=== PATIENT | male | born 1950 | race Caucasian/White ===

== ENCOUNTER → 2018-05-28 09:12 | Outpatient (CLI) | payer MEDICARE, MEDICAID, SELFPAY ==
[2018-05-28 10:33] LABS: Absolute Lymphocyte Count 1.56 X10^3/ul (0.83-4.51); Absolute Neutrophil Count 3.6 X10^3/uL (2.0-7.7); Basophil# 0.03 X10^3/uL; Basophil% 0.5 % (0-1); Eosinophil# 0.21 X10^3/uL; Eosinophils% 3.6 % (0-5); Hematocrit 46.7 % (40-54); Hemoglobin 15.6 g/dl (13.0-16.5); Lymphocyte # 1.56 X10^3/ul (4.0); Lymphocyte % 26.9 % (19-41); Mean Corp Hgb Conc 33.4 g/gl (32-36); Mean Corpuscular Hgb 28.9 pg (27.0-32.0); Mean Corpuscular Volume 86.5 fL (80-94); Mean Platelet Vol. 9.5 fl (6.2-12.0); Monocyte# 0.41 X10^3/uL; Monocyte% 7.1 % (0-10); Neutrophil # 3.59 X10^3/uL (2.7-7.7); Neutrophil % 61.9 % (47-70); Platelet Count 211 K/mm3 (150-450); RBC Distribution Width CV 13.9 % (11.6-14.6); RBC Distribution Width SD 44.1 fl (35.1-43.9); White Blood Count 5.8 K/mm3 (4.4-11.0)
[2018-05-28 10:40] LABS: POSITIVE COUNT NO; POSITIVE DIFFERENTIAL NO; POSITIVE MORPHOLOGY NO
[2018-05-28 11:38] LABS: ALB/GLOB Ratio 1.1 RATIO (0.9-2.4); AST(SGOT) 12 U/L (15-37); Alanine Aminotransfer ALT/SGPT 25 U/L (16-61); Albumin, Serum 3.8 g/dL (3.2-5.0); Alkaline Phosphatase 73 U/L (45-117); Anion Gap 6 (5-15); BUN 15 mg/dL (7-18); BUN/Creat Ratio 15.6 RATIO (10-20); Calcium,Total 8.6 mg/dL (8.5-10.1); Chloride 106 mmol/L (98-107); Cholesterol 180 mg/dL (200); Creatinine, Serum 0.96 mg/dL (0.70-1.30); EST Glomerular Filtration Rate 83 mL/min (>60); Est Glom Filt Rate - Afr Amer 100 mL/min (>60); Globulin 3.4 g/dL (2.2-4.2); Glucose 90 mg/dL (74-106); High Density Lipoprotein 32 mg/dL; Potassium 3.9 mmol/L (3.5-5.1); Protein, Total 7.2 g/dL (6.4-8.2); Sodium Level 142 mmol/L (136-145); Triglycerides 140 mg/dL; Very Low Density Lipoprotein 28 mg/dL (5-40)
== END ==
PROVIDERS: Family Provider Family Medicine; PCP Family Medicine; Visit Provider Family Medicine
DX: E78.5 Hyperlipidemia, unspecified (principal); R03.0 Elevated blood-pressure reading, without diagnosis of hypertension
CPT/HCPCS: 36415; 80053; 80061; 85025

== ENCOUNTER → 2018-09-12 09:22 | Outpatient (CLI) | payer MEDICARE, MEDICAID, SELFPAY ==
--- NOTE | 2018-09-12 09:26 | RAD_ITS ---
STUDY: X-RAY - LUMBAR SPINE REASON FOR EXAM: Male, 68 years old. CHRONIC LBP, NKI TECHNIQUE: 5 view(s) of the lumbar spine were obtained. COMPARISON: January 15, 2017 FINDINGS: Normal lumbar lordosis. There is stable grade 1 anterolisthesis at L4/L5. There is multilevel endplate spondylosis of the lumbar vertebrae. There is multi-level degenerative disc disease with multi-level disc space narrowing. The soft tissue structures are unremarkable. RAD/L/S Spine Min 4 Views IMPRESSION: Degenerative changes of the spine. Electronically Signed: Kareem Reyes MD at 8:07 EDT Tel , Service support ,
== END ==
PROVIDERS: Family Provider Family Medicine; PCP Family Medicine; Referring Provider Family Medicine; Visit Provider Family Medicine
DX: M51.36 Other intervertebral disc degeneration, lumbar region (principal)
CPT/HCPCS: 72110

== ENCOUNTER → 2019-06-22 07:19 | Outpatient (CLI) | payer MEDICARE, MEDICAID, SELFPAY ==
[2019-06-22 09:57] LABS: Absolute Lymphocyte Count 1.96 X10^3/uL (0.83-4.51); Absolute Neutrophil Count 3.8 X10^3/uL (2.0-7.7); Basophil# 0.08 X10^3/uL; Basophil% 1.2 % (0-1); Eosinophil# 0.23 X10^3/uL; Eosinophils% 3.5 % (0-5); Hematocrit 46.9 % (40-54); Hemoglobin 15.9 g/dL (13.0-16.5); Lymphocyte # 1.96 X10^3/ul (4.0); Lymphocyte % 30.1 % (19-41); Mean Corp Hgb Conc 33.9 g/dL (32-36); Mean Corpuscular Hgb 28.8 pg (27.0-32.0); Mean Platelet Vol. 9.9 fl (6.2-12.0); Monocyte# 0.45 X10^3/uL; Monocyte% 6.9 % (0-10); NRBC Flagged by Analyzer 0 % (0-5); Neutrophil # 3.79 X10^3/uL (2.7-7.7); Neutrophil % 58.1 % (47-70); Platelet Count 238 K/mm3 (150-450); RBC Distribution Width CV 13.4 % (11.6-14.6); RBC Distribution Width SD 41.5 fl (35.1-43.9); Red Blood Count 5.52 M/mm3 (4.6-6.2); White Blood Count 6.5 K/mm3 (4.4-11.0)
[2019-06-22 10:24] LABS: AST(SGOT) 14 U/L (15-37); Alanine Aminotransfer ALT/SGPT 26 U/L (16-61); Albumin, Serum 3.6 g/dL (3.2-5.0); Alkaline Phosphatase 75 U/L (45-117); Anion Gap 5 (5-15); BUN 15 mg/dL (7-18); BUN/Creat Ratio 15.3 RATIO (10-20); Calcium,Total 8.7 mg/dL (8.5-10.1); Chloride 109 mmol/L (98-107); Cholesterol 208 mg/dL (200); Creatinine, Serum 0.98 mg/dL (0.70-1.30); EST Glomerular Filtration Rate 81 mL/min (>60); Est Glom Filt Rate - Afr Amer 98 mL/min (>60); Globulin 3.5 g/dL (2.2-4.2); Glucose 102 mg/dL (74-106); High Density Lipoprotein 33 mg/dL; Potassium 3.8 mmol/L (3.5-5.1); Protein, Total 7.1 g/dL (6.4-8.2); Sodium Level 140 mmol/L (136-145); Triglycerides 156 mg/dL; Very Low Density Lipoprotein 31 mg/dL (5-40)
== END ==
PROVIDERS: Family Provider Family Medicine; PCP Family Medicine; Referring Provider Family Medicine; Visit Provider Family Medicine
DX: Z00.00 Encounter for general adult medical examination without abnormal findings (principal); I10 Essential (primary) hypertension
CPT/HCPCS: 36415; 80053; 80061; 85025

== ENCOUNTER → 2020-02-24 07:04 | Outpatient (CLI) | payer MEDICARE, SELFPAY ==
[2020-02-24 10:19] LABS: Cholesterol 174 mg/dL (200); High Density Lipoprotein 29 mg/dL; Triglycerides 183 mg/dL; Very Low Density Lipoprotein 37 mg/dL (5-40)
[2020-02-24 10:26] LABS: Hemoglobin A1c 5.8 % (4.2-6.3)
== END ==
PROVIDERS: Family Provider Family Medicine; PCP Family Medicine; Referring Provider Family Medicine; Visit Provider Family Medicine
DX: E78.5 Hyperlipidemia, unspecified (principal); R73.01 Impaired fasting glucose
CPT/HCPCS: 36415; 80061; 83036

== ENCOUNTER → 2020-06-24 | Outpatient (CLI) | payer MEDICARE, SELFPAY | END | disposition home or self-care (01) | LOC: MTDU 17:55 | PROVIDERS: PCP Family Medicine; Referring Provider Family Medicine; Visit Provider Family Medicine | DX: Z20.828 Contact with and (suspected) exposure to other viral communicable diseases (principal) | CPT/HCPCS: 87635; 94799; U0003 ==

== ENCOUNTER → 2021-04-25 07:21 | Outpatient (CLI) | payer MEDICARE, SELFPAY ==
[2021-04-25 10:25] LABS: Absolute Lymphocyte Count 1.96 X10^3/uL (0.83-4.51); Absolute Neutrophil Count 3.4 X10^3/uL (2.0-7.7); Basophil# 0.07 X10^3/uL; Basophil% 1.2 % (0-1); Eosinophil# 0.25 X10^3/uL; Eosinophils% 4.1 % (0-5); Hematocrit 47.6 % (40-54); Hemoglobin 15.4 g/dL (13.0-16.5); Lymphocyte # 1.96 X10^3/ul (0.83-4.51); Lymphocyte % 32.2 % (19-41); Mean Corp Hgb Conc 32.4 g/dL (32-36); Mean Corpuscular Hgb 27.9 pg (27.0-32.0); Mean Corpuscular Volume 86.2 fL (80-94); Mean Platelet Vol. 10.2 fl (6.2-12.0); Monocyte% 6.6 % (0-10); NRBC Flagged by Analyzer 0 % (0-5); Neutrophil # 3.39 X10^3/uL (2.7-7.7); Neutrophil % 55.7 % (47-70); Platelet Count 251 K/mm3 (150-450); RBC Distribution Width CV 13.6 % (11.6-14.6); RBC Distribution Width SD 43.1 fl (35.1-43.9); Red Blood Count 5.52 M/mm3 (4.6-6.2); White Blood Count 6.1 K/mm3 (4.4-11.0)
[2021-04-25 10:44] LABS: Hemoglobin A1c 5.7 % (3.8-5.6)
[2021-04-25 10:59] LABS: ALB/GLOB Ratio 1.1 RATIO (0.9-2.4); AST(SGOT) 14 U/L (15-37); Alanine Aminotransfer ALT/SGPT 25 U/L (16-61); Albumin, Serum 3.6 g/dL (3.2-5.0); Alkaline Phosphatase 81 U/L (45-117); BUN 19 mg/dL (7-18); BUN/Creat Ratio 16.5 RATIO (10-20); Calcium,Total 8.9 mg/dL (8.5-10.1); Cholesterol 193 mg/dL (200); Creatinine, Serum 1.15 mg/dL (0.70-1.30); EST Glomerular Filtration Rate 67 mL/min (>60); Est Glom Filt Rate - Afr Amer 81 mL/min (>60); Globulin 3.4 g/dL (2.2-4.2); Glucose 95 mg/dL (74-106); Triglycerides 206 mg/dL
[2021-04-25 11:00] LABS: Anion Gap 7 (5-15); Chloride 107 mmol/L (98-107); High Density Lipoprotein 32 mg/dL; Potassium 3.8 mmol/L (3.5-5.1); Sodium Level 141 mmol/L (136-145); Very Low Density Lipoprotein 41 mg/dL (5-40)
== END ==
PROVIDERS: PCP Family Medicine; Referring Provider Family Medicine; Visit Provider Family Medicine
DX: E78.5 Hyperlipidemia, unspecified (principal); R20.2 Paresthesia of skin; R73.01 Impaired fasting glucose; Z51.81 Encounter for therapeutic drug level monitoring
CPT/HCPCS: 36415; 80053; 80061; 83036; 85025

== ENCOUNTER → 2022-12-27 | Outpatient (CLI) | payer MEDICARE, SELFPAY ==
[2022-12-27 10:11] LABS: Absolute Lymphocyte Count 2.05 X10^3/uL (0.83-4.51); Absolute Neutrophil Count 3.6 X10^3/uL (2.0-7.7); Basophil# 0.08 X10^3/uL; Basophil% 1.2 % (0-1); Hematocrit 46.4 % (40-54); Hemoglobin 15.2 g/dL (13.0-16.5); Lymphocyte # 2.05 X10^3/ul (0.83-4.51); Lymphocyte % 30.6 % (19-41); Mean Corp Hgb Conc 32.8 g/dL (32-36); Mean Corpuscular Hgb 28.8 pg (27.0-32.0); Mean Corpuscular Volume 87.9 fL (80-94); Monocyte# 0.54 X10^3/uL; NRBC Flagged by Analyzer 0 % (0-5); Neutrophil # 3.63 X10^3/uL (2.7-7.7); Neutrophil % 54.1 % (47-70); Platelet Count 282 K/mm3 (150-450); RBC Distribution Width SD 44.8 fl (35.1-43.9); Red Blood Count 5.28 M/mm3 (4.6-6.2); White Blood Count 6.7 K/mm3 (4.4-11.0)
[2022-12-27 10:28] LABS: ALB/GLOB Ratio 0.9 RATIO (0.9-2.4); AST(SGOT) 19 U/L (15-37); Alanine Aminotransfer ALT/SGPT 27 U/L (16-61); Albumin, Serum 3.6 g/dL (3.2-5.0); Alkaline Phosphatase 85 U/L (45-117); Anion Gap 5 (5-15); BUN 16 mg/dL (7-18); BUN/Creat Ratio 15.2 RATIO (10-20); Calcium,Total 8.7 mg/dL (8.5-10.1); Chloride 108 mmol/L (98-107); Cholesterol 194 mg/dL (200); Creatinine, Serum 1.05 mg/dL (0.70-1.30); EST Glomerular Filtration Rate 74 mL/min (>60); Est Glom Filt Rate - Afr Amer 90 mL/min (>60); Ferritin 104 ng/mL (26-388); Globulin 3.8 g/dL (2.2-4.2); Glucose 100 mg/dL (74-106); High Density Lipoprotein 39 mg/dL; Potassium 3.8 mmol/L (3.5-5.1); Protein, Total 7.4 g/dL (6.4-8.2); Sodium Level 144 mmol/L (136-145); Triglycerides 158 mg/dL; Very Low Density Lipoprotein 32 mg/dL (5-40)
[2022-12-27 10:33] LABS: Hemoglobin A1c 5.8 % (3.8-5.6)
== END | disposition home or self-care (01) ==
PROVIDERS: PCP Family Medicine; Referring Provider Family Medicine; Visit Provider Family Medicine
DX: G25.81 Restless legs syndrome (principal); E78.5 Hyperlipidemia, unspecified; R79.9 Abnormal finding of blood chemistry, unspecified
CPT/HCPCS: 36415; 80053; 80061; 82728; 83036; 85025

== ENCOUNTER → 2023-08-27 | Outpatient (CLI) | payer MEDICARE, SELFPAY ==
--- NOTE | 2023-08-27 16:42 | RAD_ITS ---
STUDY: X-RAY - LUMBAR SPINE REASON FOR EXAM: Male, 72 years old. SCIATICA TECHNIQUE: 5 view(s) of the lumbar spine were obtained. COMPARISON: None FINDINGS: Normal lumbar lordosis. There is no substantial scoliosis. There is 9 mm anterolisthesis of L4 on L5, otherwise normal alignment of the vertebrae. Normal vertebral bodies and endplates. Multilevel facet joint degenerative changes. Normal disc space heights. There is no demonstrated fracture. There is atherosclerotic calcification of the abdominal aorta without a demonstrated aneurysm. RAD/L/S Spine Min 4 Views IMPRESSION: No acute abnormality. Degenerative changes. Anterolisthesis of L4 on L5. Electronically Signed: Aleks Candelario MD at 18:02 EDT ,
== END | disposition home or self-care (01) ==
LOC: MTRAD 16:39
PROVIDERS: PCP Family Medicine; Referring Provider Nurse Practitioner Family; Visit Provider Nurse Practitioner Family
DX: M54.32 Sciatica, left side (principal); M51.36 Other intervertebral disc degeneration, lumbar region
CPT/HCPCS: 72110

== ENCOUNTER 2023-10-02 08:00 | Outpatient (RCR) | payer MEDICARE, SELFPAY ==
--- NOTE | 2023-08-21 09:21 | HP.PTEVAL ---
Patient's Visit Information Visit Information Visit Information: TIFFANIE GRANDE is a 72 year old M referred to Physical Therapy by Dr. Amari Bowen DO with a diagnosis of SCIATICA LEFT SIDE ,INTERVERTEBRAL DISC DEGENERATION ,LUMBAR. Date of Evaluation: 08/21/23 Physical Therapist: Jim Small, PT, Cert MDT, OCS Visit Plan Frequency: 2x /Week Duration: 4 Weeks Plan: PT INTERVENTIONS LUMBAR ROM INTAILLY FLEXION ,LE FLEXABLITY ,DLS ,POSTURAL EX'S AND MODALTIES PRN Subjective Subjective: This 72 male presents physical therapy with lumbar radiculopathy left leg. Patient has lumbar pain for ~ 1year . Patient seen Dr tried pain medication and prednisone and muscle relaxer from Urgent care. Patient plans to get x-rays. Pain located buttock and lower leg left leg ,no pain in lumbar. Aggravating factors walking ,standing . Alleviating sitting and rest and driving okay.. Coughing/sneezing-. Bowel/bladder- . Pain affects sleeping. No abnormal night pain . Denies parestehesia/tingling. Patient had no prior interventions. Patient goals to have no pain. 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 Pain Left Lower Extremity: Pain Intensity (Out of 10): 8 Pain Intensity Range: N/A Objective Objective: POSTURE: mild forward posture GAIT: reciprocal pattern SYMTTRIES: align PALAPTION: tender L-S FLEXABLITY :hamstrings min/mod loss MMT: quads/hams 4/5 ,hip flexion 4-/5 ,ankle 5/5 LUMBAR ROM: flexion WNL ,extension WFL ,SIDE GLIDES WFL Special Tests L/S Slump test left side: Negative L/S Slump test right side: Negative L/S Left Straight Leg Raise: Negative L/S Right Straight Leg Raise: Negative Lumbar Standing: Flexion - Mechanical Response: No effect Lumbar Standing: Flexion - Symptoms During Testing: No effect Lumbar Standing: Flexion - Symptoms After Testing: No effect Lumbar Standing: Extension - Mechanical Response: No effect Lumbar Standing: Extension - Symptoms During Testing: Increases Lumbar Standing: Extension - Symptoms After Testing: No worse Lumbar Standing: Right Side Glides - Mechanical Response: No effect Lumbar Standing: Right Side Williamson - Symptoms During Testing: No effect Lumbar Standing: Right Side Williamson - Symptoms After Testing: No effect Lumbar Standing: Left Side Williamson - Mechanical Response: No effect Lumbar Standing: Left Side Williamson - Symptoms During Testing: No effect Lumbar Standing: Left Side Williamson - Symptoms After Testing: No effect Lumbar Lying: Flexion - Mechanical Response: No effect Lumbar Lying: Flexion - Symptoms During Testing: Decreases Lumbar Lying: Flexion - Symptoms After Testing: Better Lumbar Lying: Extension - Mechanical Response: No effect Lumbar Lying: Extension - Symptoms During Testing: Increases Lumbar Lying: Extension - Symptoms After Testing: No worse Balance/Special Test Scores Oswestry Low Back Score: 23 Goals Goal 1:: I with HEP for lumbr Goal Time Frame: 4-6 Weeks Goal 2:: Patient to demonstrate 50% improvement with decrease pain and improved function Goal Time Frame: 4-6 Weeks Goal 3:: Patient to improve lumbar ROM for function of recovery to lift and perform yardwork. Goal Time Frame: 4-6 Weeks Goal 4:: Patient to improve back oswestry score by 5 points or > to improve QOL Goal Time Frame: 4-6 Weeks Goal 5:: Patient to be able return walking with no limitations Goal Time Frame: 4-6 Weeks Rehabilitation Potential Physical Therapy Diagnosis: This patient has lumbar radiculopathy possible lateral stenosis ,with pain with standing/walking better with sitting and bending thus benefit from skilled PT Rehabilitation Potential: Excellent Anticipated Interventions Patient/Client Instruction: Educate patient on: Condition and Plan of Care For the Purpose of:: To decrease pain, To increase ROM, To improve muscle performance and motor function, To improve ability to perform ADL's, To increase tolerance to activity/condition/position, To improve ability of physical actions for home/community/work/leisure, To improve health of tissue, To decrease soft tissue restriction and To increase flexibility/ROM Therapeutic Exercise to Include: Strength training, Postural training, Flexibilty training, Dynamic Lumbar Stabilization and Cintia Exercises For the Purpose of:: To decrease pain, To increase ROM, To improve muscle performance and motor function, To improve ability to perform ADL's, To increase tolerance to activity/condition/position, To improve ability of physical actions for home/community/work/leisure, To improve gait and locomotor functions, To improve health of tissue, To decrease soft tissue restriction and To increase flexibility/ROM TENS: Yes IF ES: Yes Cryotherapy (ice pack, ice massage): Yes Thermo therapy (hot pack): Yes Ultrasound (thermal/non thermal): Yes For the Purpose of:: To decrease pain, To increase ROM, To improve health of tissue and To decrease soft tissue restriction Text: Thank you for the opportunity to evaluate your patient. For Medicare and Medicare HMO plans, please review the plan of care and approve it. It will need to be FAXED BACK to us at [phone] for Medicare purposes. For Medicare only, by signing this I certify the plan of care. Please let me know if there are questions or concerns regarding this plan of care. Physician Signature: Date:
--- NOTE | 2023-10-02 08:30 | HP.PTDCSUM ---
Discharge Summary D/C summary: It has been my pleasure to treat TIFFANIE GRANDE referred by Dr. Amari Bowen DO, with the diagnosis of SCIATICA LEFT SIDE ,INTERVERTEBRAL DISC DEGENERATION ,LUMBAR for a total of 9 visit(s). Discharge Date: 10/02/23 Please see the following information for a summary of their discharge status. Subjective Subjective: Doing better overall but last week more pain Pain Left Lower Extremity: Pain Intensity (Out of 10): 0 Overall Improvement % Improvement: 80 Objective Objective/Function: POSTURE: mild forward posture GAIT: reciprocal pattern SYMTTRIES: align PALAPTION: tender L-S FLEXABLITY :hamstrings min/mod loss MMT: quads/hams 4/5 ,hip flexion 4-/5 ,ankle 5/5 LUMBAR ROM: flexion WNL ,extension WFL ,SIDE GLIDES WFL Goals Goal 1:: I with HEP for lumbr Goal Progress: Goal Met Goal 2:: Patient to demonstrate 50% improvement with decrease pain and improved function Goal Progress: Goal Met Goal 3:: Patient to improve lumbar ROM for function of recovery to lift and perform yardwork. Goal Progress: Goal Met Goal 4:: Patient to improve back oswestry score by 5 points or > to improve QOL Goal Progress: Goal Met Goal 5:: Patient to be able return walking with no limitations Goal Progress: Goal Met Plan Plan: D/C PROVIDED HANDOUT WITH GYM EX'S D/C Information Discharge Comments: HEP AND GYM PROGRAM d/c sentence: If there are questions or concerns regarding this patient's physical therapy, please feel free to call me at [phone]. Thank you for the referral of this patient. Sincerely, Jim Small, PT, Cert MDT, OCS Balance/Gait/Functional tests Balance/Special Test Scores Oswestry Low Back Score: 5 Improvement % Improvement: 80
== END 2023-10-02 14:21 | disposition home or self-care (01) ==
LOC: PT 08:00
PROVIDERS: PCP Family Medicine; Referring Provider Family Medicine; Visit Provider Family Medicine
DX: M54.32 Sciatica, left side (principal); M51.36 Other intervertebral disc degeneration, lumbar region
CPT/HCPCS: 97035; 97110; 97162

== ENCOUNTER → 2024-03-11 | Outpatient (CLI) | payer MEDICARE, SELFPAY ==
[2024-03-11 12:12] LABS: Absolute Lymphocyte Count 1.76 X10^3/uL (0.83-4.51); Absolute Neutrophil Count 3.7 X10^3/uL (2.0-7.7); Basophil# 0.08 X10^3/uL; Basophil% 1.3 % (0-1); Eosinophil# 0.25 X10^3/uL; Hematocrit 47.3 % (40-54); Hemoglobin 15.4 g/dL (13.0-16.5); Lymphocyte # 1.76 X10^3/ul (0.83-4.51); Lymphocyte % 27.9 % (19-41); Mean Corp Hgb Conc 32.6 g/dL (32-36); Mean Corpuscular Hgb 28.1 pg (27.0-32.0); Mean Corpuscular Volume 86.2 fL (80-94); Monocyte# 0.48 X10^3/uL; Monocyte% 7.6 % (0-10); NRBC Flagged by Analyzer 0 % (0-5); Neutrophil # 3.73 X10^3/uL (2.7-7.7); Platelet Count 270 K/mm3 (150-450); RBC Distribution Width CV 13.8 % (11.6-14.6); RBC Distribution Width SD 43.6 fl (35.1-43.9); Red Blood Count 5.49 M/mm3 (4.6-6.2); White Blood Count 6.3 K/mm3 (4.4-11.0)
[2024-03-11 12:28] LABS: AST(SGOT) 20 U/L (15-37); Alanine Aminotransfer ALT/SGPT 22 U/L (16-61); Albumin, Serum 3.5 g/dL (3.2-5.0); Alkaline Phosphatase 73 U/L (45-117); Anion Gap 5 (5-15); BUN 15 mg/dL (7-18); BUN/Creat Ratio 15.5 RATIO (10-20); Calcium,Total 8.8 mg/dL (8.5-10.1); Chloride 110 mmol/L (98-107); Cholesterol 174 mg/dL (200); Creatinine, Serum 0.97 mg/dL (0.70-1.30); EST Glomerular Filtration Rate 81 mL/min (>60); Est Glom Filt Rate - Afr Amer 98 mL/min (>60); Globulin 3.5 g/dL (2.2-4.2); Glucose 106 mg/dL (74-106); High Density Lipoprotein 33 mg/dL; Sodium Level 139 mmol/L (136-145); Triglycerides 140 mg/dL; Very Low Density Lipoprotein 28 mg/dL (5-40)
[2024-03-11 12:34] LABS: Hemoglobin A1c 5.6 % (3.8-5.6)
== END | disposition home or self-care (01) ==
LOC: BFHLAB 08:48
PROVIDERS: PCP Family Medicine; Referring Provider Family Medicine; Visit Provider Family Medicine
DX: R73.01 Impaired fasting glucose (principal); E78.5 Hyperlipidemia, unspecified; Z51.81 Encounter for therapeutic drug level monitoring
CPT/HCPCS: 36415; 80053; 80061; 83036; 85025

== ENCOUNTER → 2025-03-04 | Outpatient (CLI) | payer MEDICARE, SELFPAY ==
[2025-03-04 12:56] LABS: Absolute Lymphocyte Count 2.58 X10^3/uL (0.83-4.51); Absolute Neutrophil Count 5.3 X10^3/uL (2.0-7.7); Basophil# 0.06 X10^3/uL; Basophil% 0.7 % (0-1); Eosinophil# 0.21 X10^3/uL; Eosinophils% 2.4 % (0-5); Hematocrit 46.3 % (40-54); Hemoglobin 15.2 g/dL (13.0-16.5); Lymphocyte # 2.58 X10^3/ul (0.83-4.51); Lymphocyte % 29.4 % (19-41); Mean Corp Hgb Conc 32.8 g/dL (32-36); Mean Corpuscular Hgb 28.6 pg (27.0-32.0); Mean Corpuscular Volume 87.2 fL (80-94); Mean Platelet Vol. 9.7 fl (6.2-12.0); Monocyte# 0.58 X10^3/uL; Monocyte% 6.6 % (0-10); NRBC Flagged by Analyzer 0 % (0-5); Neutrophil # 5.33 X10^3/uL (2.7-7.7); Neutrophil % 60.7 % (47-70); Platelet Count 293 K/mm3 (150-450); RBC Distribution Width CV 14.1 % (11.6-14.6); RBC Distribution Width SD 45.1 fl (35.1-43.9); Red Blood Count 5.31 M/mm3 (4.6-6.2); White Blood Count 8.8 K/mm3 (4.4-11.0)
[2025-03-04 13:16] LABS: ALB/GLOB Ratio 1.3 RATIO (0.9-2.4); AST(SGOT) 17 U/L (<=37); Alanine Aminotransfer ALT/SGPT 18 U/L (<=46); Alkaline Phosphatase 82 U/L (40-129); Anion Gap 10 (5-15); BUN 12 mg/dL (4-19); BUN/Creat Ratio 12.3 RATIO (10-20); Calcium,Total 8.9 mg/dL (7.6-11.0); Carbon Dioxide 24.6 mmol/L (21.0-32.0); Chloride 105 mmol/L (98-108); Cholesterol 186 mg/dL (<=200); Creatinine, Serum 0.93 mg/dL (0.70-1.20); EST Glomerular Filtration Rate 87 (>60); Globulin 3.1 g/dL (2.2-4.2); Glucose 99 mg/dL (70-99); High Density Lipoprotein 29 mg/dL; Low Density Lipoprotein Calc. 127 mg/dL; Sodium Level 140 mmol/L (133-145); Total Bilirubin 0.85 mg/dL (0.00-1.30); Triglycerides 150 mg/dL; Very Low Density Lipoprotein 30 mg/dL (5-40); cholesterol:hdl ratio screen 6.35
[2025-03-04 13:30] LABS: Hemoglobin A1c 5.7 % (<=5.6)
== END | disposition home or self-care (01) ==
LOC: MTLAB 07:07
PROVIDERS: PCP Family Medicine; Referring Provider Family Medicine; Visit Provider Family Medicine
DX: E78.5 Hyperlipidemia, unspecified (principal); R73.01 Impaired fasting glucose; I10 Essential (primary) hypertension
CPT/HCPCS: 36415; 80053; 80061; 83036; 85025

== ENCOUNTER 2025-03-08 16:39 | Emergency (ER) | payer MEDICARE, SELFPAY ==
[2025-03-08 16:40] VITALS: BP 133/84; PULSE 92; RESP 18; TEMP 36.8; O2SAT 94; BMI 30.5
[2025-03-08 17:06] VITALS: BP 131/86; PULSE 73; RESP 16; O2SAT 91
--- NOTE | 2025-03-08 17:07 | EKG12_ITS ---
Test Reason : CP Blood Pressure : */* mmHG Vent. Rate : 78 BPM Atrial Rate : 78 BPM P-R Int : 238 ms QRS Dur : 88 ms QT Int : 364 ms P-R-T Axes : 33 -58 -10 degrees QTcB Int : 414 ms Sinus rhythm with 1st degree A-V block Left axis deviation Inferior infarct , age undetermined Abnormal ECG Confirmed by BERONICA CHA, JOSIE ([id number]), research editor CINDY BATES ([id number]) on 03/10/2025 1:21:53 PM Referred By: Confirmed By: JOSIE LOCO MD
[2025-03-08] MEDS: 0.9% Normal Saline (1000mL) 1,000 ML 999 ML IV (17:23)
[2025-03-08] MEDS: Aspirin 81 MG TAB.CHEW 324 MG PO (17:23)
--- NOTE | 2025-03-08 17:23 | EX.ED.DYSGE1 ---
HPI History of Present Illness Chief Complaint: Chest Pain Narrative Narrative: Patient is a 74-year-old male with past medical history of hypertension, restless leg syndrome, prostatectomy, who presents to the [facility] part with chief complaint chest pain. He states that for approximately 9 days now he has had intermittent chest pain and states that the pain is in the middle of his chest and will periodically radiate to the right side of his chest. He states that nothing off the top of his mind makes this worse. He states that sometimes he was sleeping when this occurred and has no specific inciting events to his chest pain. He states that he did recently travel to [place] and then to [place]. Patient denies any blood clots. He states that he does not have shortness of breath with exertion. [facility] Medical History Abdominal muscle strain Acute bronchitis, unspecified Cellulitis of scalp Incontinence Chronic neck and back pain Difficulty balancing when standing Restless leg syndrome Hemorrhoids Prostate cancer HTN (hypertension) Home Medications ?Medication ?Instructions ?Recorded ?Last Taken ?Type gabapentin 800 mg tablet 800 mg PO Q12H 10/20/21 Unknown History hydroxyzine pamoate 50 mg capsule 50 mg PO QHS 10/20/21 Unknown History codeine sulfate 60 mg tablet 60 mg PO QHS PRN PRN sleep 03/08/25 Unknown History Allergy/AdvReac Type Severity Reaction Status Date / Time No Known Allergies Allergy Verified 03/08/25 16:43 Family History Father Rheumatoid arthritis Surgical History H/O wrist surgery History of prostatectomy Social History Smoking Status: Never smoker alcohol intake: current alcohol intake frequency: a few times a week Alcohol type: hard liquor ROS ROS ED ROS Narrative Constitutional: Denies any fever, chills, headaches, lightness, dizziness Eyes: Denies change in vision double vision blurry vision Cardiovascular: Complains of chest pain as noted Respiratory: Denies cough or wheezing shortness of breath Abdomen: Denies abdominal pain nausea vomit diarrhea : Denies urinary symptoms Neurological: Denies numbness, weakness, tingling Musculoskeletal: Denies back pain Skin: Denies rashes or lesions EXAM Physical Exam Narrative Exam Narrative: General: Patient lying in bed was comfortable did not appear to be in acute distress Head: Atraumatic, normocephalic Eyes: PERRL bilaterally, EOMI bilateral, no conjunctival injection noted Neck: Soft, supple, trachea midline Cardiovascular: Regular rate and rhythm no murmurs gallops rubs noted Respiratory: Clear to auscultation bilaterally Abdomen: Nondistended, nontender to palpation Extremities: +5/5 strength noted in the bilateral upper and lower extremities, radial pulse +2/4 in the bilateral extremities, no pedal edema exam Neurological: Patient follow commands knew that he was at [facility] year is 2024 Skin: Warm, dry, intact no rashes or lesions noted Const Vital Signs: 03/08/25 16:40 03/08/25 17:06 03/08/25 17:06 Temperature 98.3 F Temperature Source Oral Pulse Rate 92 73 Respiratory Rate 18 16 Respiratory Effort Normal Blood Pressure 133/84 H 131/86 H Blood Pressure Mean 100 101 Pulse Ox 94 91 Oxygen Delivery Method Room Air Room Air 03/08/25 17:07 03/08/25 18:00 03/08/25 19:00 Temperature Temperature Source Pulse Rate 72 65 Respiratory Rate 16 15 Respiratory Effort Blood Pressure 131/84 H 134/100 H Blood Pressure Mean 99 111 Pulse Ox 94 94 Oxygen Delivery Method Room Air 03/08/25 20:00 Temperature Temperature Source Pulse Rate 83 Respiratory Rate 17 Respiratory Effort Blood Pressure 162/93 H Blood Pressure Mean 116 Pulse Ox 95 Oxygen Delivery Method Room Air MDM MDM MDM Narrative Medical decision making narrative: Patient is a 72-year-old male who presented to the emergency department chief complaint of chest pain. On the differential diagnose includes but not limited to ACS, pneumonia, pneumothorax, PE. Once workup is obtained reviewed he will be reevaluated. Once again this pain has been going off and on for approximately 9 days. He states that he did have a stress test back in 2017. HEART Score for Major Cardiac Events from [email or web address] on 03/08/2025 All calculations should be rechecked by clinician prior to use RESULT SUMMARY: 4 points Moderate Score (4-6 points) Risk of MACE of 12-16.6%. If troponin is positive, many experts recommend further workup and admission even with a low HEART Score. INPUTS: History ?> 0 = Slightly suspicious EKG ?> 0 = Normal Age ?> 2 = >=5 Risk factors ?> 1 = 1-2 risk factors Initial troponin ?> 1 = 1?3? normal limit Patient CBC was reviewed and showed no evidence leukocytosis white blood count normal 8.6, he was 14.6, platelet count was noted to be 308. Patient D-dimer was less than 0.27. Patient sodium was normal 140, potassium normal at 4, creatinine was 1.11. Patient's troponin was 33 delta troponin of 22, EKG was reviewed showed sinus rhythm with evidence of first-degree AV block with AR interval 238. Patient's chest x-ray reviewed by myself and by radiology showed no acute cardiopulmonary processes. Discussed case with on-call certified medical biller Dr. Tucker who states that the patient go home and follow-up in outpatient setting. At this point time do have low suspicion for cardiac etiology at this point in time given that his pain has been going on for 9 days now nothing makes this better or worse. And nothing specifically brings his pain on he states that this can be when he is sitting resting versus sleeping. Patient was advised to get a stress test in the outpatient setting and return with worsening symptoms and concerns. He is agreeable to this plan all question concerns answered he was discharged home in stable condition. Lab Data Labs: Laboratory Results - last 24 hr 03/08/25 03/08/25 17:00 18:46 WBC 8.6 RBC 5.05 Hgb 14.6 Hct 43.2 MCV 85.5 MCH 28.9 MCHC 33.8 RDW Std Deviation 43.6 RDW Coeff of Meggan 14.1 Plt Count 308 MPV 9.4 Immature Gran % (Auto) 0.500 Neut % (Auto) 56.0 Lymph % (Auto) 31.9 [place] % (Auto) 7.5 Eos % (Auto) 2.9 Baso % (Auto) 1.2 H Absolute Neuts (auto) 4.8 Absolute Lymphs (auto) 2.73 Nucleated RBC % 0 D-Dimer Quant (PE/DVT) < 0.27 L Sodium 140 Potassium 4.0 Chloride 105 Carbon Dioxide 24.1 Anion Gap 11 BUN 16 Creatinine 1.11 Estim Creat Clear Calc 65.92 Est GFR (MDRD) Non-Af 71 BUN/Creatinine Ratio 14.2 Glucose 99 Calcium 9.4 Troponin T High Sens 33 H Troponin T Hi Sens 2 Hr 29 H Radiography Diagnostic Testing: Clinical Impression(s) from Imaging Studies Chest X-Ray 03/08/25 17:25 IMPRESSION: NO ACUTE FINDINGS. Reading Location: [facility] Discharge Plan Triage Chief Complaint: Chest Pain ED Provider: Surya Ware Dx/Rx/DC Orders Clinical Impression: Chest pain Prescriptions: No Action gabapentin 800 mg tablet 800 mg PO Q12H hydroxyzine pamoate 50 mg capsule 50 mg PO QHS codeine sulfate 60 mg tablet 60 mg PO QHS PRN PRN (Reason: sleep) Primary Care Provider: Amari Bowen Referrals: Amari Bowen DO [Primary Care Provider] - Activity Restrictions/Additional Instructions: Follow-up with your primary care physician outpatient setting. Return to worsening symptoms any concerns. Sure you obtain an outpatient stress test. Print Language: Congolese Disposition Disposition: Home, Self Care
--- NOTE | 2025-03-08 17:25 | RAD_ITS ---
PROCEDURE: CHEST PA AND LATERAL 03/08/2025 REASON FOR EXAM: CHEST PAIN TECHNIQUE: Frontal and lateral views of the chest. FINDINGS: Hardware: None Heart: The heart size is normal. Mediastinum: The mediastinal contour is unremarkable. Lungs: The lungs are clear. Bones: The bones are unremarkable. RAD/Chest PA and Lateral IMPRESSION: NO ACUTE FINDINGS. Reading Location: [id number]
[2025-03-08 17:35] LABS: Anion Gap 11 (5-15); BUN 16 mg/dL (4-19); BUN/Creat Ratio 14.2 RATIO (10-20); Calcium,Total 9.4 mg/dL (7.6-11.0); Carbon Dioxide 24.1 mmol/L (21.0-32.0); Chloride 105 mmol/L (98-108); Creatinine, Serum 1.11 mg/dL (0.70-1.20); EST Glomerular Filtration Rate 71 (>60); Estimated Creatinine Clearance 65.92 ml/min (50-250); Glucose 99 mg/dL (70-99); Sodium Level 140 mmol/L (133-145); Troponin T High Sensitivity 33 ng/L (<=22)
[2025-03-08 17:43] LABS: Absolute Lymphocyte Count 2.73 X10^3/uL (0.83-4.51); Absolute Neutrophil Count 4.8 X10^3/uL (2.0-7.7); Basophil% 1.2 % (0-1); Eosinophil# 0.25 X10^3/uL; Eosinophils% 2.9 % (0-5); Hematocrit 43.2 % (40-54); Hemoglobin 14.6 g/dL (13.0-16.5); Lymphocyte # 2.73 X10^3/ul (0.83-4.51); Lymphocyte % 31.9 % (19-41); Mean Corp Hgb Conc 33.8 g/dL (32-36); Mean Corpuscular Hgb 28.9 pg (27.0-32.0); Mean Corpuscular Volume 85.5 fL (80-94); Mean Platelet Vol. 9.4 fl (6.2-12.0); Monocyte# 0.64 X10^3/uL; Monocyte% 7.5 % (0-10); NRBC Flagged by Analyzer 0 % (0-5); Neutrophil # 4.79 X10^3/uL (2.7-7.7); Platelet Count 308 K/mm3 (150-450); RBC Distribution Width CV 14.1 % (11.6-14.6); RBC Distribution Width SD 43.6 fl (35.1-43.9); Red Blood Count 5.05 M/mm3 (4.6-6.2); White Blood Count 8.6 K/mm3 (4.4-11.0)
[2025-03-08 18:00] VITALS: BP 131/84; PULSE 72; RESP 16; O2SAT 94
[2025-03-08 19:00] VITALS: BP 134/100; PULSE 65; RESP 15; O2SAT 94
[2025-03-08 19:12] LABS: Troponin T High Sens 2 HR 29 ng/L (<=22)
[2025-03-08 19:21] LABS: D-Dimer Quantitative (DVT/PE) < 0.27 FEU/ug/m (0.27-0.49)
[2025-03-08 20:00] VITALS: BP 162/93; PULSE 83; RESP 17; O2SAT 95
[2025-03-08 20:22] VITALS: BP 155/65; PULSE 85; RESP 17; TEMP 36.3; O2SAT 95
== END 2025-03-08 20:23 | disposition home or self-care (01) ==
PROVIDERS: Emergency Provider Emergency Medicine; PCP Family Medicine; Visit Provider Emergency Medicine
DX: R07.9 Chest pain, unspecified (principal); I10 Essential (primary) hypertension; Z90.79 Acquired absence of other genital organ(s); Z85.46 Personal history of malignant neoplasm of prostate
CPT/HCPCS: 71046; 80048; 84484; 85025; 85379; 93005; 96360; 99284; A4216